=== PATIENT | female | born 1965 | race Caucasian/White ===

== ENCOUNTER 2018-08-06 16:35 | Observation (INO) | payer SELFPAY ==
--- NOTE | 2018-08-06 17:50 | ER Document Report ---
ED Medical Screen (RME) - General Chief Complaint: Blood Pressure Problem Stated Complaint: BLOOD PRESSURE ISSUES Time Seen by Provider: 08/06/18 17:41 Mode of Arrival: Ambulatory Information source: Patient Notes: This Brazilian-speaking female presents to the emergency department with reports of high blood pressure. Last week she obtained a blood pressure machine. She has not been taking her blood pressure until she got the machine. Once she started taking her blood pressure and noted it was very high. She reports she did feel little bit short of breath a couple days ago. But otherwise denies symptoms such as headache chest pain nausea vomiting fever diarrhea. Patient reports no past medical history. Reports she was taking a diet supplement to help her lose weight but she quit taking that one week ago. Denies drinking red bull or energy drinks. I have greeted and performed a rapid initial assessment of this patient. A comprehensive ED assessment and evaluation of the patient, analysis of test results and completion of the medical decision making process will be conducted by additional ED providers. dictation of this chart was performed using voice recognition software; therefore, there may be some unintended grammatical errors. TRAVEL OUTSIDE OF THE [place] IN LAST 30 DAYS: No - Related Data Allergies/Adverse Reactions: No Known Allergies Allergy (Verified 08/06/18 16:58) Physical Exam - Vital signs Vitals: Temp Pulse Resp BP Pulse Ox 99.5 F 78 18 237/103 H 98 08/06/18 16:55 08/06/18 16:55 08/06/18 16:55 08/06/18 16:55 08/06/18 16:55 Course - Vital Signs Vital signs: Temp Pulse Resp BP Pulse Ox 99.5 F 78 18 237/103 H 98 08/06/18 16:55 08/06/18 16:55 08/06/18 16:55 08/06/18 16:55 08/06/18 16:55
--- NOTE | 2018-08-06 18:13 | RADIOLOGY REPORT (SQ) ---
EXAM DESCRIPTION: CHEST 2 VIEWS COMPLETED DATE/TIME: 08/06/2018 6:01 pm REASON FOR STUDY: sob COMPARISON: None. EXAM PARAMETERS: NUMBER OF VIEWS: two views TECHNIQUE: Digital Frontal and Lateral radiographic views of the chest acquired. RADIATION DOSE: NA LIMITATIONS: none FINDINGS: LUNGS AND PLEURA: No consolidation, masses or pneumothorax. No significant pleural effusio n. MEDIASTINUM AND HILAR STRUCTURES: Mild tortuosity of the thoracic aorta. HEART AND VASCULAR STRUCTURES: Heart normal size. No evidence for failure. BONES: No acute findings. HARDWARE: None in the chest. OTHER: No other significant finding. IMPRESSION: No consolidation or significant pleural effusion.Mild tortuosity of the thoracic aorta. TECHNICAL DOCUMENTATION: JOB ID: [id number] [id number] 2010 [employer]- All Rights Reserved Reading location - IP/workstation name: [email or web address]
[2018-08-06 19:27] LABS: ABSOLUTE EOSINOPHILS # (AUTO) 0.1 10^3/uL (0.0-0.6); ABSOLUTE LYMPHOCYTES (AUTO) 1.4 10^3/uL (0.5-4.7); ABSOLUTE MONOCYTES (AUTO) 0.3 10^3/uL (0.1-1.4); ABSOLUTE NEUT (AUTO) 3.4 10^3/uL (1.7-8.2); BASOPHILS % (AUTO) 0.5 % (0-2); EOSINOPHILS % (AUTO) 1.3 % (0-6); HEMATOCRIT 34.3 % (36.0-47.0); MEAN CORPUSCULAR HEMOGLOBIN 24.8 pg (27.0-33.4); MEAN CORPUSCULAR HGB CONC 32.1 g/dL (32.0-36.0); MEAN CORPUSCULAR VOLUME 77 fl (80-97); PLATELET COUNT 314 10^3/uL (150-450); RED BLOOD COUNT 4.43 10^6/uL (3.72-5.28); SEGMENTED NEUTROPHILS % (AUTO) 65.2 % (42-78); TOTAL CELLS COUNTED % (AUTO) 100 %; WHITE BLOOD COUNT 5.2 10^3/uL (4.0-10.5)
[2018-08-06 19:47] LABS: ALANINE AMINOTRANSFERASE 23 U/L (9-52); ALBUMIN 4.6 g/dL (3.5-5.0); ALKALINE PHOSPHATASE 88 U/L (38-126); ANION GAP 9 (5-19); ASPARTATE AMINO TRANSFERASE 25 U/L (14-36); BILIRUBIN,DIRECT 0.2 mg/dL (0.0-0.4); BILIRUBIN,TOTAL 0.3 mg/dL (0.2-1.3); BLOOD UREA NITROGEN 11 mg/dL (7-20); CALCIUM 9.8 mg/dL (8.4-10.2); CARBON DIOXIDE 28 mmol/L (22-30); CHLORIDE 105 mmol/L (98-107); GLUCOSE 101 mg/dL (75-110); POTASSIUM 4.7 mmol/L (3.6-5.0); SODIUM 142.4 mmol/L (137-145); TOTAL PROTEIN 8.3 g/dL (6.3-8.2)
--- NOTE | 2018-08-06 20:05 | EKG REPORT ---
SEVERITY:- ABNORMAL ECG - SINUS RHYTHM LVH WITH SECONDARY REPOLARIZATION ABNORMALITY ANTERIOR Q WAVES, POSSIBLY DUE TO LVH : Confirmed by: Sugey Amaro MD 06-Aug-2018 20:04:15
--- NOTE | 2018-08-06 22:51 | ER Document Report ---
ED General - General Chief Complaint: Blood Pressure Problem Stated Complaint: BLOOD PRESSURE ISSUES Time Seen by Provider: 08/06/18 17:41 Mode of Arrival: Ambulatory TRAVEL OUTSIDE OF THE [place] IN LAST 30 DAYS: No - Related Data Allergies/Adverse Reactions: No Known Allergies Allergy (Verified 08/06/18 16:58) Past Medical History - General Information source: Patient - Social History Smoking Status: Never Smoker Frequency of alcohol use: None Drug Abuse: None Patient has suicidal ideation: No Patient has homicidal ideation: No Renal/ Medical History: Denies: Hx Peritoneal Dialysis Physical Exam - Vital signs Vitals: Temp Pulse Resp BP Pulse Ox 99.5 F 78 18 237/103 H 98 08/06/18 16:55 08/06/18 16:55 08/06/18 16:55 08/06/18 16:55 08/06/18 16:55 Course - Vital Signs Vital signs: Temp Pulse Resp BP Pulse Ox 98.1 F 74 16 139/90 H 99 08/07/18 04:05 08/07/18 04:15 08/07/18 04:05 08/07/18 04:05 08/07/18 04:05 - Laboratory Result Diagrams: 08/06/18 18:52 08/06/18 18:52 Laboratory results interpreted by me: 08/06/18 08/06/18 18:52 18:52 Hgb 11.0 L Hct 34.3 L MCV 77 L MCH 24.8 L RDW 16.0 H Total Protein 8.3 H - EKG Interpretation by Me Additional EKG results interpreted by me: 08/06/18 22:51 EKG is reviewed and interpreted by me. EKG shows sinus rhythm with rate of [address] segment elevation or depression. No ischemic T wave inversions. NE interval, QRS duration, QT intervals are within normal range. No old EKG available for comparison. Discharge - Discharge Clinical Impression: Hypertensive emergency Headache Qualifiers: Headache type: unspecified Headache chronicity pattern: acute headache Intractability: not intractable Qualified Code(s): R51 - Headache Condition: Stable Disposition: ADMITTED OBSERVATION
--- NOTE | 2018-08-07 00:52 | ER Document Report ---
ED Blood Pressure Problem - General Chief Complaint: Blood Pressure Problem Stated Complaint: BLOOD PRESSURE ISSUES Time Seen by Provider: 08/06/18 17:41 Mode of Arrival: Ambulatory Notes: Patient is a 53-year-old female that comes to the emergency department for chief complaint of hypertension. She states she bought a home blood pressure cuff, she checked her blood pressure and found that both her blood pressure and her 's blood pressures were elevated, so she came to the emergency department. She states after she arrived she developed a headache, frontal and left side. She denies visual changes, dizziness, focal numbness or weakness. She denies chest pain. She denies any daily medications, smoking, alcohol, recreational drugs, or past medical history. She states that she started taking a diet supplement to lose weight but she stopped this 1 week ago. TRAVEL OUTSIDE OF THE [place] IN LAST 30 DAYS: No - Related Data Allergies/Adverse Reactions: No Known Allergies Allergy (Verified 08/06/18 16:58) Past Medical History - General Information source: Patient - Social History Smoking Status: Never Smoker Frequency of alcohol use: None Drug Abuse: None Lives with: Family Family History: Reviewed & Not Pertinent Patient has suicidal ideation: No Patient has homicidal ideation: No Renal/ Medical History: Denies: Hx Peritoneal Dialysis Review of Systems - Review of Systems Constitutional: No symptoms reported EENT: No symptoms reported Cardiovascular: No symptoms reported Respiratory: No symptoms reported Gastrointestinal: No symptoms reported Genitourinary: No symptoms reported Female Genitourinary: No symptoms reported Musculoskeletal: No symptoms reported Skin: No symptoms reported Hematologic/Lymphatic: No symptoms reported Neurological/Psychological: See HPI Physical Exam - Vital signs Vitals: Temp Pulse Resp BP Pulse Ox 99.5 F 78 18 237/103 H 98 08/06/18 16:55 08/06/18 16:55 08/06/18 16:55 08/06/18 16:55 08/06/18 16:55 - Notes Notes: GENERAL: Alert, interacts well. HEAD: Normocephalic, atraumatic. EYES: Pupils equal, round, and reactive to light. Extraocular movements intact. ENT: Oral mucosa moist, tongue midline. Oropharynx unremarkable. Airway patent. NECK: Full range of motion. Supple. Trachea midline. LUNGS: Clear to auscultation bilaterally, no wheezes, rales, or rhonchi. No respiratory distress. HEART: Regular rate and rhythm. No murmur ABDOMEN: Soft, non-tender. Non-distended. Bowel sounds present in all 4 quadrants. GENITOURINARY: Deferred EXTREMITIES: Moves all 4 extremities spontaneously. No edema, normal radial and dorsalis pedis pulses bilaterally. No cyanosis. BACK: no cervical, thoracic, lumbar midline tenderness. No saddle anesthesia, normal distal neurovascular exam. NEUROLOGICAL: Alert and oriented x3. Normal speech. Cranial nerves II through XII grossly intact. PSYCH: Normal affect, normal mood. SKIN: Warm, dry, normal turgor. No rashes or lesions noted. Course - Re-evaluation Re-evalutation: Patient is extremely hypertensive. She does report a headache. She denies chest pain. Unfortunately with her symptomatic hypertension this is consistent with a hypertensive emergency. CAT scan of the head was performed, this does not show intracranial hemorrhage. Patient was started on nicardipine drip, this was discussed with Dr. Iverson. Patient will require admission for hypertensive emergency. Patient reevaluated. Blood pressure is downtrending nicely. She no longer has a headache. She will be maintained on Cardene drip for now. Review of laboratory findings with no concerning abnormalities except questionable chest x-ray of possible mildly tortuous aorta. I discussed with family, they are agreeable with admission plan. I discussed with Dr. Eldridge, hospitalist, patient will be excepted to IMCU. Patient will be attempted to be transitioned from Cardene drip to nitroglycerin. - Vital Signs Vital signs: Temp Pulse Resp BP Pulse Ox 98.1 F 74 16 139/90 H 99 08/07/18 04:05 08/07/18 04:15 08/07/18 04:05 08/07/18 04:05 08/07/18 04:05 - Laboratory Result Diagrams: 08/06/18 18:52 08/06/18 18:52 Laboratory results interpreted by me: 08/06/18 08/06/18 18:52 18:52 Hgb 11.0 L Hct 34.3 L MCV 77 L MCH 24.8 L RDW 16.0 H Total Protein 8.3 H Discharge - Discharge Clinical Impression: Hypertensive emergency Headache Qualifiers: Headache type: unspecified Headache chronicity pattern: acute headache Intractability: not intractable Qualified Code(s): R51 - Headache Condition: Stable Disposition: ADMITTED OBSERVATION Admitting Provider: Chente (Hospitalist) Unit Admitted: [facility]
[2018-08-07] MEDS ORDERED: NICARDIPINE HCL RTU, ISO-OS 20 MG/200 ML RTUINJ IV PRN (00:55)
--- NOTE | 2018-08-07 01:55 | RADIOLOGY REPORT (SQ) ---
EXAM DESCRIPTION: CT HEAD WITHOUT IV CONTRAST COMPLETED DATE/TME: 08/07/2018 00:50 CLINICAL HISTORY: 53 years, Female, headache, hypertension COMPARISON: None. TECHNIQUE: CT brain without contrast. This exam was performed according to our departmental dose optimization program which includes use of automated exposure control, adjustment of the mA and/or kV according to patient size and/or use of iterative reconstruction technique. Images stored on PACS. All CT scanners at this facility use dose modulation, iterative reconstruction, and/or weight based dosing when appropriate to reduce radiation dose to as low as reasonably achievable (ALARA). [facility]: Dose Right [facility]: CareDose [facility]: Dose Right [facility]: Teradose 4D [facility]: Fieldoo LIMITATIONS: None. FINDINGS: The ventricles, sulci, and cisterns are within normal limits. The dumont-white matter differentiation is preserved. There is no mass effect, midline shift, intra- or extra-axial fluid collection/acute hemorrhage. The osseous structures are unremarkable. Polyp or retention cyst within the bilateral maxillary sinuses. The paranasal sinuses and mastoid air cells are otherwise clear. IMPRESSION: No acute intracranial abnormalities. TECHNICAL DOCUMENTATION: Quality ID # 436: Final reports with documentation of one or more dose reduction techniques (e.g., Automated exposure control, adjustment of the mA and/or kV according to patient size, use of iterative reconstruction technique) copyright 2011 [email or web address]- All Rights Reserved
[2018-08-07] MEDS ORDERED: HYDRALAZINE HCL INJ/PF 20 MG/1 ML SDV IV PRN (02:36)
[2018-08-07] MEDS ORDERED: NITROGLYCERIN 2% OINTMENT 1 GM PACKET TP ONE (02:36)
[2018-08-07] MEDS ORDERED: MAGNESIUM HYDROXIDE SUSP 30 ML UDCUP PO PRN (02:38)
[2018-08-07] MEDS ORDERED: MAG HYDROX/AL HYDROX/SIMETH SUSP 30 ML UDCUP PO PRN (02:38)
[2018-08-07] MEDS ORDERED: ENALAPRILAT DIHYDRATE INJ/PF 1.25 MG/1 ML SDV IV ONE (02:50)
--- NOTE | 2018-08-07 03:22 | PDOC H&P ---
History of Present Illness Admission Date/PCP: 08/07/18 02:41 Patient complains of: Headache History of Present Illness: ASA GANT is a 53 year old female without significant past medical history who presents with approximately 1 week of shortness of breath, polyuria and 48 hours of headache prompting evaluation in the emergency room where she is found to hav e a systolic blood pressure in the 240s. She denies chest pain nausea vomiting palpitations blurred vision or dizziness. She is started on Cardene and referred to the hospitalist for admission. Patient admits OTC weight loss supplement for the last 2 weeks. She denies history of heat or cold int olerance, Alcohol or recreational drugs. Past Medical History Medical History: None Traumatic Medical History: Reports: None Hematology: Reports: None Infectious Medical History: Reports: None Past Surgical History Past Surgical History: Reports: None Social History Smoking Status: Never Smoker Family History Family History: Hypertension Parental Family History Reviewed: Yes Children Family History Reviewed: Yes Sibling(s) Family History Reviewed.: Yes Medication/Allergy Allergies/Adverse Reactions: No Known Allergies Allergy (Verified 08/06/18 16:58) Review of Systems Constitutional: PRESENT: as per HPI, weight loss. ABSENT: chills, fatigue, fever(s), headache(s), night sweats, weight gain Eyes: ABSENT: visual disturbances Ears: ABSENT: hearing changes Cardiovascular: ABSENT: chest pain, dyspnea on exertion, edema, orthropnea, palpitations Respiratory: PRESENT: as per HPI, dyspnea. ABSENT: cough, hemoptysis Gastrointestinal: ABSENT: abdominal pain, constipation, diarrhea, hematemesis, hematochezia, nausea, vomiting Genitourinary: ABSENT: dysuria, hematuria Musculoskeletal: ABSENT: joint swelling Integumentary: ABSENT: rash, wounds Neurological: PRESENT: as per HPI. ABSENT: abnormal gait, abnormal speech, confusion, dizziness, focal weakness, syncope, tingling, tremor(s), vertigo Psychiatric: ABSENT: anxiety, depression, homidical ideation, suicidal ideation Endocrine: ABSENT: cold intolerance, heat intolerance, polydipsia, polyuria Hematologic/Lymphatic: ABSENT: easy bleeding, easy bruising Physical Exam Vital Signs: Temp Pulse Resp BP Pulse Ox 99.5 F 78 16 141/99 H 100 08/06/18 16:55 08/06/18 16:55 08/07/18 02:50 08/07/18 02:50 08/07/18 02:50 Intake & Output 08/05/18 08/06/18 08/07/18 11:59 11:59 11:59 Intake Total 42 Balance 42 Weight 57.9 kg General appearance: PRESENT: no acute distress, well-developed, well-nourished Head exam: PRESENT: atraumatic, normocephalic Eye exam: PRESENT: conjunctiva pink, EOMI, PERRLA. ABSENT: scleral icterus Ear exam: PRESENT: normal external ear exam Mouth exam: PRESENT: moist, tongue midline Neck exam: ABSENT: carotid bruit, JVD, lymphadenopathy, thyromegaly Respiratory exam: PRESENT: clear to auscultation zoran. ABSENT: rales, rhonchi, wheezes Cardiovascular exam: PRESENT: RRR. ABSENT: diastolic murmur, rubs, systolic murmur Pulses: PRESENT: normal dorsalis pedis pul Vascular exam: PRESENT: normal capillary refill GI/Abdominal exam: PRESENT: normal bowel sounds, soft. ABSENT: distended, guarding, mass, organolmegaly, rebound, tenderness Rectal exam: PRESENT: deferred Extremities exam: PRESENT: full ROM. ABSENT: calf tenderness, clubbing, pedal edema Neurological exam: PRESENT: alert, awake, oriented to person, oriented to place, oriented to time, oriented to situation, CN II-XII grossly intact. ABSENT: motor sensory deficit Psychiatric exam: PRESENT: appropriate affect, normal mood. ABSENT: homicidal ideation, suicidal ideation Skin exam: PRESENT: dry, intact, warm. ABSENT: cyanosis, rash Results Laboratory Results: 08/06/18 18:52 08/06/18 18:52 08/06/18 08/06/18 18:52 18:52 WBC 5.2 RBC 4.43 Hgb 11.0 L Hct 34.3 L MCV 77 L MCH 24.8 L MCHC 32.1 RDW 16.0 H Plt Count 314 Seg Neutrophils % 65.2 Lymphocytes % 27.0 Monocytes % 6.0 Eosinophils % 1.3 Basophils % 0.5 Absolute Neutrophils 3.4 Absolute Lymphocytes 1.4 Absolute Monocytes 0.3 Absolute Eosinophils 0.1 Absolute Basophils 0.0 Sodium 142.4 Potassium 4.7 Chloride 105 Carbon Dioxide 28 Anion Gap 9 BUN 11 Creatinine 0.56 Est GFR ( Amer) > 60 Est GFR (Non-Af Amer) > 60 Glucose 101 Calcium 9.8 Total Bilirubin 0.3 AST 25 ALT 23 Alkaline Phosphatase 88 Total Protein 8.3 H Albumin 4.6 08/06/18 18:52 NT-Pro-B Natriuret Pep 94 Impressions: Chest X-Ray 08/06/18 17:47 IMPRESSION: No consolidation or significant pleural effusion.Mild tortuosity of the thoracic aorta. Head CT 08/07/18 00:50 IMPRESSION: No acute intracranial abnormalities. TECHNICAL DOCUMENTATION: Quality ID # 436: Final reports with documentation of one or more dose reduction techniques (e.g., Automated exposure control, adjustment of the mA and/or kV according to patient size, use of iterative reconstruction technique) copyright 2011 [employer]- All Rights Reserved Assessment and Plan - Diagnosis (1) Hypertensive emergency Is this a current diagnosis for this admission?: Yes Plan: Most likely multifactorial secondary to OTC weight loss supplement and essential hypertension given family history. Follow-up TSH, titrate off Cardene, nitrates, hydralazine and Vasotec initiated. (2) Headache Qualifiers: Headache type: unspecified Headache chronicity pattern: acute headache Intractability: not intractable Qualified Code(s): R51 - Headache Is this a current diagnosis for this admission?: Yes Plan: Secondary to #1, CT negative for bleed however if persistent pain consider LP for occult subarachnoid hemorrhage. Correction of #1 (3) Anemia Is this a current diagnosis for this admission?: Yes Plan: Microcytic, likely iron deficient, follow-up labs. - Time Time Spent with patient: 25-34 minutes
[2018-08-07 04:09] LABS: APPEARANCE,URINE CLEAR; BILIRUBIN,URINE NEGATIVE (NEGATIVE); COLOR,URINE STRAW; GLUCOSE, URINE NEGATIVE (NEGATIVE); KETONES,URINE NEGATIVE (NEGATIVE); LEUKOCYTE ESTERASE,URINE NEGATIVE (NEGATIVE); NITRITE,URINE NEGATIVE (NEGATIVE); PROTEIN,URINE NEGATIVE (NEGATIVE); URINE SPECIFIC GRAVITY 1.006; UROBILINOGEN,URINE NEGATIVE mg/dL (<2.0)
[2018-08-07 04:16] LABS: URINE AMPHETAMINES SCREEN NEGATIVE; URINE BARBITURATES SCREEN NEGATIVE; URINE BENZODIAZEPINES SCREEN NEGATIVE; URINE COCAINE SCREEN NEGATIVE; URINE MARIJUANA (THC) SCREEN NEGATIVE; URINE METHADONE SCREEN NEGATIVE; URINE PHENCYCLIDINE SCREEN NEGATIVE
[2018-08-07] MEDS: HEPARIN SOD (PORCINE) 5,000 UNIT/ML 1 ML SYRINGE SUBCUT SCH ×3 (06:13→21:29)
[2018-08-07] MEDS: LOSARTAN POTASSIUM 50 MG TABLET PO SCH (09:10)
[2018-08-07] MEDS: ACETAMINOPHEN 325 MG TABLET PO PRN (09:10)
--- NOTE | 2018-08-07 12:54 | Progress Note ---
Provider Note Provider Note: The patient is a 53-year-old female with out significant past medical history who was admitted early this morning by the [employer] for headache secondary to hypertensive emergency. Overnight events, imaging, laboratory work, vital signs and orders were reviewed. Agree with plan of care as set forth by the previous provider. Continue losartan 50 mg p.o. daily with hydralazine as needed for blood pressure control. Cardiac diet. Start ferrous sulfate and multivitamin supplementation for iron deficiency anemia. Anticipate patient will be ready for discharge to home with self-care within 24 hours.
[2018-08-08] MEDS: ACETAMINOPHEN 325 MG TABLET PO PRN (00:38)
[2018-08-08] MEDS: HEPARIN SOD (PORCINE) 5,000 UNIT/ML 1 ML SYRINGE SUBCUT SCH ×2 (06:07→15:41)
[2018-08-08] MEDS ORDERED: MULTIVITAMIN TABLET PO SCH (10:00)
[2018-08-08] MEDS ORDERED: FERROUS SULFATE 325 MG TABLET PO SCH (10:00)
[2018-08-08] MEDS: LOSARTAN POTASSIUM 50 MG TABLET PO SCH (10:54)
[2018-08-08] MEDS ORDERED: HYDROCHLOROTHIAZIDE 25 MG TABLET PO SCH (12:30)
[2018-08-08 13:26] VITALS: BP 157/72
--- NOTE | 2018-08-11 14:02 | PDOC DISCHARGE SUMMARY ---
General - Admit/Disc Date/PCP Admission Date/Primary Care Provider: 08/07/18 02:41 Discharge Date: 08/08/18 - Discharge Diagnosis (1) Anemia Is this a current diagnosis for this admission?: Yes Summary: Iron deficiency anemia. Patient is discharged with prescriptions for daily ferrous sulfate and multivitamin supplementation. (2) Headache Is this a current diagnosis for this admission?: Yes Summary: Resolved; secondary to Hypertensive Emergency. (3) Hypertensive emergency Is this a current diagnosis for this admission?: Yes Summary: Most likely multifactorial secondary to OTC weight loss supplement and essential hypertension given family history. Patient was admitted with BP 235/110; decreased to 157/72 at time of discharge. CXR and Head CT are benign. EKG revealed NSR with LVH. No ST segment changes. TSH is nml. Patient was admitted on continuous cardiac telemetry. She was initially placed on Cardene gtt and Nitro paste which has been weaned off. She has been started on Losartan and Hydrochlorathiazide. She is instructed to eat a low sodium diet, decrease caffeine, and avoid nicotine use. She is discharged to home in stable condition, asymptomatic, and ambulatory on room air. She is prescribed Losartan, HCTZ, multivitamin and iron supplements. She is instructed to follow up with her PCP within 1 week and to return to the emergency department as needed for concerning symptoms. - Additional Information Resuscitation Status: Full Code Discharge Diet: Cardiac Discharge Activity: Activity As Tolerated, Balance Activity w/Rest Prescriptions: Ferrous Sulfate [Feosol 325 mg Tablet] 325 mg PO DAILY #90 tablet Hydrochlorothiazide [Hydrodiuril 25 mg Tablet] 25 mg PO DAILY #30 tablet Losartan Potassium [Cozaar 50 mg Tablet] 50 mg PO DAILY #30 tablet Multivitamin [Tab-A-Edel (Multiple Vitamin) Tablet] 1 tab PO DAILY #90 tablet Home Medications: Acetaminophen [Tylenol 325 mg Tablet] 650 mg PO Q4HP PRN tablet 08/08/18 Ferrous Sulfate [Feosol 325 mg Tablet] 325 mg PO DAILY #90 tablet 08/08/18 Hydrochlorothiazide [Hydrodiuril 25 mg Tablet] 25 mg PO DAILY #30 tablet 9 Losartan Potassium [Cozaar 50 mg Tablet] 50 mg PO DAILY #30 tablet 08/08/18 Multivitamin [Tab-A-Edel (Multiple Vitamin) Tablet] 1 tab PO DAILY #90 tablet 08/08/18 History of Present Illness History of Present Illness: Per H&P by Dr. Eldridge: ASA GANT is a 53 year old female without significant past medical history who presents with approximately 1 week of shortness of breath, polyuria and 48 hours of headache prompting evaluation in the emergency room where she is found to have a systolic blood pressure in the 240s. She denies chest pain nausea vomiting palpitations blurred vision or dizziness. She is started on Cardene and referred to the hospitalist for admission. Patient admits OTC weight loss supplement for the last 2 weeks. She denies history of heat or cold intolerance, Alcohol or recreational drugs. Physical Exam Vital Signs: Temp Pulse Resp BP Pulse Ox 97.6 F 61 17 157/72 H 100 08/08/18 15:50 08/08/18 15:50 08/08/18 15:50 08/08/18 15:50 08/08/18 15:50 General appearance: PRESENT: no acute distress, well-developed, well-nourished Head exam: PRESENT: atraumatic, normocephalic Eye exam: PRESENT: conjunctiva pink, EOMI, PERRLA. ABSENT: scleral icterus Ear exam: PRESENT: normal external ear exam Mouth exam: PRESENT: moist, tongue midline Neck exam: ABSENT: carotid bruit, JVD, lymphadenopathy, thyromegaly Respiratory exam: PRESENT: clear to auscultation zoran. ABSENT: rales, rhonchi, wheezes Cardiovascular exam: PRESENT: RRR. ABSENT: diastolic murmur, rubs, systolic murmur Pulses: PRESENT: normal dorsalis pedis pul Vascular exam: PRESENT: normal capillary refill GI/Abdominal exam: PRESENT: normal bowel sounds, soft. ABSENT: distended, guarding, mass, organolmegaly, rebound, tenderness Rectal exam: PRESENT: deferred Extremities exam: PRESENT: full ROM. ABSENT: calf tenderness, clubbing, pedal edema Neurological exam: PRESENT: alert, awake, oriented to person, oriented to place, oriented to time, oriented to situation, CN II-XII grossly intact. ABSENT: motor sensory deficit Psychiatric exam: PRESENT: appropriate affect, normal mood. ABSENT: homicidal ideation, suicidal ideation Skin exam: PRESENT: dry, intact, warm. ABSENT: cyanosis, rash Results Laboratory Results: 08/06/18 18:52 08/06/18 18:52 08/06/18 18:52 NT-Pro-B Natriuret Pep 94 Impressions: Chest X-Ray 08/06/18 17:47 IMPRESSION: No consolidation or significant pleural effusion.Mild tortuosity of the thoracic aorta. Head CT 08/07/18 00:50 IMPRESSION: No acute intracranial abnormalities. TECHNICAL DOCUMENTATION: Quality ID # 436: Final reports with documentation of one or more dose reduction techniques (e.g., Automated exposure control, adjustment of the mA and/or kV according to patient size, use of iterative reconstruction technique) copyright 2011 [employer]- All Rights Reserved Qualifiers - * PATIENT BEING DISCHARGED WITH ANY OF THE FOLLOWING DIAGNOSIS: No Acute Heart Failure Is this a Heart Failure Patient?: No Plan Discharge Plan: Follow up with primary care provider within 1 week. Take medications as prescribed. Eat a low sodium diet. Decrease caffeine intake. Do not smoke. Return to the emergency department as needed for concerning symptoms. Time Spent: Less than 30 Minutes
== END 2018-08-08 16:27 | disposition home or self-care (01) ==
LOC: ER 16:35 → EH 08-07 02:41 → 3W 08-07 04:00 → 4W 08-07 22:55
PROVIDERS: ADMIT Internal Medicine; ATTEND Internal Medicine
DX: D50.9 Iron deficiency anemia, unspecified (principal); R51 Headache; I16.1 Hypertensive emergency; R35.8 Other polyuria; R06.02 Shortness of breath; Z79.899 Other long term (current) drug therapy; Z82.49 Family history of ischemic heart disease and other diseases of the circulatory system
CPT/HCPCS: 93005; 99285; 96375; 96365; 36415 ×2; 83540; 84443; 85025; 80053; 81001; 80307; 83880; 71046; 70450; 93010; J1644; J0360; J3490 ×2; G0378